=== PATIENT | male | born 1945 | race Caucasian/White ===

== ENCOUNTER 2022-09-04 19:21 | Inpatient (IN) | payer MEDICARE ==
[2022-09-04] MEDS ORDERED: Nitroglycerin 50 MG/250 ML BOT ONE (19:30)
[2022-09-04] MEDS ORDERED: Heparin 10,000 UNITS/ 10 ML VIAL ONE ×3 (19:30→20:00)
[2022-09-04 19:44] LABS: Hemoglobin 15.8 g/dL (14.0-18.0); Mean Corpuscular HGB CONC 33.5 g/dL (32.0-36.0); Mean Corpuscular Volume 98.4 fl (78.0-98.0); Mean Platelet Volume 8.6 fL (7.4-10.4); Platelet Count 122 10x3/uL (130-400); RBC Distribution Width 12.7 % (11.5-14.5); Red Blood Cell (RBC) Count 4.79 mill/uL (4.70-6.10); White Blood Cell (WBC) Count 15.7 10x3/uL (4.8-10.8)
[2022-09-04 19:54] LABS: Prothrombin Time 13.4 sec (12.0-14.7)
[2022-09-04 19:55] LABS: Acetaminophen Less than 10.0 mcg/mL (10.0-30.0); Alcohol Less than 10 mg/dL (Less than 10); CK (CPK) 49 U/L (30-200); Salicylate Less than 8.0 mg/dL (15.0-30.0)
[2022-09-04 19:57] LABS: ALT (SGPT) 16 U/L (8-55); AST (SGOT) 18 U/L (5-34); Albumin 4.1 g/dL (3.4-4.8); Alkaline Phosphatase 53 U/L (40-110); Anion Gap 18 mmol/L (10-20); BUN (Urea Nitrogen) 19 mg/dL (8.4-25.7); Calc. Creatinine Clearance 0 mL/min (70-130); Calcium 9.1 mg/dL (7.8-10.44); Carbon Dioxide 19 mmol/L (23-31); Chloride 106 mmol/L (98-107); Estimated GFR 72; Globulin 2.2 g/dL (2.4-3.5); Glucose 178 mg/dL (83-110); Lipase 22 U/L (8-78); Potassium 4.5 mmol/L (3.5-5.1); Protein, Total 6.3 g/dL (5.8-8.1); Sodium 138 mmol/L (136-145)
[2022-09-04] MEDS ORDERED: Atropine Sulfate 1 mg/10 ml Syringe ONE (20:02)
[2022-09-04] MEDS ORDERED: Adenosine 6 MG/2 ML VIAL ONE (20:02)
[2022-09-04] MEDS ORDERED: PHENYLEPHRINE-NS 100 MCG/ML 10 ML SYRINGE ONE (20:02)
[2022-09-04] MEDS ORDERED: Norepinephrine 4 MG/4 ML VIAL ONE (20:02)
[2022-09-04] MEDS ORDERED: EPINEPHrine 1 MG/10 ML Abboject SYRINGE ONE (20:02)
[2022-09-04 20:06] LABS: Eosinophils 1 % (0-10); Lymphocytes 48 % (21-51); MDiff Complete? YES; Monocytes 3 % (0-10); Neutrophil 46 % (42-75); Platelet Morphology Comment Appears Decreased; RBC Morphology Normal
[2022-09-04] MEDS ORDERED: DOPamine 400 MG/D5W 250 ML 250 ML ONE (20:15)
[2022-09-04] MEDS ORDERED: FENTANYL 50 MCG/ML 1 ML VIAL ONE (20:28)
[2022-09-04] MEDS ORDERED: Clopidogrel Bisulfate 300 MG TAB ONE (20:43)
[2022-09-04] MEDS ORDERED: Morphine 2 MG/ML VIAL SLOW IVP PRN (21:03)
[2022-09-04] MEDS ORDERED: Morphine 4 MG/ML VIAL SLOW IVP PRN (21:03)
[2022-09-04] MEDS ORDERED: Nitroglycerin 0.4 MG TAB (25 Tab Bottle) SL PRN (21:03)
[2022-09-04] MEDS ORDERED: Sodium Chloride 0.9% 1,000 ML IV SCH (21:15)
[2022-09-04 21:59] VITALS: BMI 34.7
[2022-09-04] MEDS ORDERED: DOPamine 400 MG/D5W 250 ML 250 ML IVPB SCH (22:00)
[2022-09-04 23:15] LABS: Troponin I 13.903 ng/mL (< 0.028)
[2022-09-05] MEDS ORDERED: HumaLOG 300 UNITS/3 ML VIAL SC SCH (00:30)
[2022-09-05 02:53] LABS: Hemoglobin 15.5 g/dL (14.0-18.0); Mean Corpuscular HGB CONC 34.4 g/dL (32.0-36.0); Mean Corpuscular Hemoglobin 33.2 pg (27.0-31.0); Mean Corpuscular Volume 96.6 fl (78.0-98.0); Mean Platelet Volume 8.6 fL (7.4-10.4); Platelet Count 110 10x3/uL (130-400); RBC Distribution Width 12.7 % (11.5-14.5); Red Blood Cell (RBC) Count 4.68 mill/uL (4.70-6.10)
[2022-09-05 03:15] LABS: ALT (SGPT) 33 U/L (8-55); AST (SGOT) 116 U/L (5-34); Albumin 3.9 g/dL (3.4-4.8); Alkaline Phosphatase 51 U/L (40-110); Anion Gap 14 mmol/L (10-20); BUN (Urea Nitrogen) 17 mg/dL (8.4-25.7); Bilirubin, Total 1.2 mg/dL (0.2-1.2); Calc. Creatinine Clearance 128 mL/min (70-130); Calcium 8.6 mg/dL (7.8-10.44); Carbon Dioxide 17 mmol/L (23-31); Chloride 108 mmol/L (98-107); Estimated GFR 92; Globulin 2.2 g/dL (2.4-3.5); Glucose 189 mg/dL (83-110); Potassium 3.8 mmol/L (3.5-5.1); Protein, Total 6.1 g/dL (5.8-8.1); Sodium 135 mmol/L (136-145)
[2022-09-05 03:23] LABS: Lymphocytes 45 % (21-51); MDiff Complete? YES; Monocytes 2 % (0-10); Neutrophil 53 % (42-75); Platelet Morphology Comment Appears Decreased; RBC Morphology Normal
[2022-09-05 03:32] LABS: SARS-CoV-2 NAA Rapid Test Not Detected (NotDetected)
[2022-09-05 04:29] LABS: Magnesium 1.7 mg/dL (1.6-2.6)
[2022-09-05 06:48] LABS: Critical Call Chem Troponin I RESULT DECREASING; Troponin I 26.268 ng/mL (< 0.028)
[2022-09-05] MEDS ORDERED: DOPamine 400 MG/D5W 250 ML 250 ML IVPB SCH (08:47)
[2022-09-05] MEDS ORDERED: Famotidine/PF 20 mg/2ml Vial SLOW IVP SCH (09:00)
[2022-09-05] MEDS: Thiamine 100 MG TAB PO SCH (09:28)
[2022-09-05] MEDS: Aspirin Chewable 81 MG TAB PO SCH (09:29)
[2022-09-05] MEDS: Clopidogrel Bisulfate 75 MG TAB PO SCH (09:29)
[2022-09-05] MEDS: Ezetimibe 10 MG TAB PO SCH (09:29)
[2022-09-05] MEDS ORDERED: Dextrose 50% Abboject 50 ML SYRINGE SLOW IVP PRN (11:34)
[2022-09-05] MEDS ORDERED: Dextrose 5% in Water 1,000 ML IV PRN (11:34)
[2022-09-05] MEDS ORDERED: HumaLOG 300 UNITS/3 ML VIAL SC PRN (11:34)
[2022-09-05] MEDS: HumaLOG 300 UNITS/3 ML VIAL SC PRN (16:15)
[2022-09-05] MEDS: Rosuvastatin 20 MG TAB PO SCH (20:32)
[2022-09-06] MEDS: Thiamine 100 MG TAB PO SCH (07:58)
[2022-09-06] MEDS: Aspirin Chewable 81 MG TAB PO SCH (07:58)
[2022-09-06] MEDS: Clopidogrel Bisulfate 75 MG TAB PO SCH (07:58)
[2022-09-06] MEDS: Ezetimibe 10 MG TAB PO SCH (07:58)
[2022-09-06] MEDS: HumaLOG 300 UNITS/3 ML VIAL SC PRN (11:11)
[2022-09-06 12:51] VITALS: BP 98/82
[2022-09-06] MEDS: metFORMIN 850 MG TAB PO SCH (16:45)
[2022-09-06] MEDS: Rosuvastatin 20 MG TAB PO SCH (20:06)
[2022-09-07] MEDS ORDERED: metFORMIN 500 MG TAB PO SCH (08:00)
[2022-09-07] MEDS: Thiamine 100 MG TAB PO SCH (08:13)
[2022-09-07] MEDS: metFORMIN 850 MG TAB PO SCH (08:13)
[2022-09-07] MEDS: Ezetimibe 10 MG TAB PO SCH (08:13)
[2022-09-07] MEDS: Clopidogrel Bisulfate 75 MG TAB PO SCH (08:13)
[2022-09-07] MEDS: Aspirin Chewable 81 MG TAB PO SCH (08:13)
[2022-09-07 08:29] VITALS: TEMP 98.4
[2022-09-08] MEDS ORDERED: Lisinopril 2.5 MG TAB PO SCH (09:00)
== END 2022-09-07 10:00 | disposition home or self-care (01) | DRG 247 ==
LOC: ERS 19:21 → CCL 19:53 → CCU 20:17
PROVIDERS: ADMIT Internal Medicine Cardiovascular Disease; ATTEND Internal Medicine Cardiovascular Disease
PROC: 027034Z Dilation of Coronary Artery, One Artery with Drug-eluting Intraluminal Device, Percutaneous Approach (ICD-10-PCS; principal; 2022-09-04)
PROC: 4A023N7 Measurement of Cardiac Sampling and Pressure, Left Heart, Percutaneous Approach (ICD-10-PCS; 2022-09-04)
PROC: B2111ZZ Fluoroscopy of Multiple Coronary Arteries using Low Osmolar Contrast (ICD-10-PCS; 2022-09-04)
PROC: B2151ZZ Fluoroscopy of Left Heart using Low Osmolar Contrast (ICD-10-PCS; 2022-09-04)
PROC: 3E033XZ Introduction of Vasopressor into Peripheral Vein, Percutaneous Approach (ICD-10-PCS; 2022-09-04)
DX: I21.19 ST elevation (STEMI) myocardial infarction involving other coronary artery of inferior wall (principal); E87.20 Acidosis, unspecified; C91.10 Chronic lymphocytic leukemia of B-cell type not having achieved remission; T82.855A Stenosis of coronary artery stent, initial encounter; Z20.822 Contact with and (suspected) exposure to COVID-19; I25.10 Atherosclerotic heart disease of native coronary artery without angina pectoris; I25.5 Ischemic cardiomyopathy; I10 Essential (primary) hypertension; Y83.1 Surgical operation with implant of artificial internal device as the cause of abnormal reaction of the patient, or of later complication, without mention of misadventure at the time of the procedure; D69.6 Thrombocytopenia, unspecified; E78.5 Hyperlipidemia, unspecified; E11.9 Type 2 diabetes mellitus without complications; E66.9 Obesity, unspecified; R00.1 Bradycardia, unspecified; Z90.49 Acquired absence of other specified parts of digestive tract; Z68.33 Body mass index [BMI] 33.0-33.9, adult; Z91.14 Patient's other noncompliance with medication regimen; Z79.899 Other long term (current) drug therapy; Z79.82 Long term (current) use of aspirin; Z79.02 Long term (current) use of antithrombotics/antiplatelets; Z79.84 Long term (current) use of oral hypoglycemic drugs
CPT/HCPCS: 36415; 36416; 71045; 80053; 80307; 82550; 83690; 83735; 84425; 84484; 85025; 85347; 85610; 85730; 92941; 93005; 93010; 93306; 93454; 93798; 99152; C1769; C1876; C1887; C9606; J0153; J0171; J0461; J1265; J1644; J1650; J1815; J3010; J7050; S0028; U0002